=== PATIENT | male | born 1980 | race Caucasian/White ===

== ENCOUNTER 2016-11-21 19:20 | Emergency (ER) | payer SELFPAY ==
[~2016-11-21] VITALS: Ht 177.8 cm; Wt 72.6 kg
[~2016-11-21 19:20] MED LIST: HYDR-971 PO; SULF1TAB24 PO; TRAM-29 PO
[2016-11-21 19:39] VITALS: BP 137/93
[2016-11-21 20:37] LABS: OBC FLU VALID
[2016-11-21] MEDS ORDERED: PROAIR HFA8.5 GM INH (20:50)
[2016-11-21] MEDS ORDERED: PRED20TA PO (20:50)
--- NOTE | 2016-11-21 20:50 | PHYS DOC ---
Past Medical History Past Medical History: Arrhythmia, Bipolar, Other Additional Past Medical Histor: adhd Past Surgical History: Other Additional Past Surgical Histo: hand, Smokin Pack Per Day Alcohol Use: None Drug Use: Marijuana Adult General Chief Complaint Chief Complaint: SORE THROAT HPI HPI Patient is a 36 year old male who presents with sore throat and nasal congestion starting yesterday. Reports frontal headache, body aches, and mild cough. He denies fever, otalgia, dyspnea, vomiting, or diarrhea. He does not have a PCP. Review of Systems Review of Systems Constitutional: Denies fever or chills. [] Eyes: Denies change in visual acuity, redness, or eye pain. [] HENT: Denies ear pain. Reports sore throat and nasal congestion. Respiratory: Denies shortness of breath. Reports mild cough. Cardiovascular: Denies chest pain, palpitations or edema. [] GI: Denies abdominal pain, nausea, vomiting, bloody stools or diarrhea. [] : Denies dysuria, hematuria or urinary frequency. [] Musculoskeletal: Denies back pain or joint pain. Reports diffuse myalgias. Integument: Denies rash or skin lesions. [] Neurologic: Denies focal weakness or sensory changes. Reports frontal headache. Endocrine: Denies polyuria or polydipsia. [] Psych: Denies anxiety or depression. [] All systems reviewed and negative unless otherwise stated in the HPI. Allergies Allergies Allergies Coded Allergies Type Severity Reaction Last Updated Verified No Known Drug Allergies 01/08/16 No Physical Exam Physical Exam Constitutional: Well developed, well nourished, no acute distress, non-toxic appearance. [] HENT: Normocephalic, atraumatic, bilateral external ears normal, oropharynx moist, no oral exudates, nose normal. Bilateral TMs without erythema or bulging. There is mild posterior pharyngeal erythema with minimal tonsillar edema without exudates. There is no peritonsillar abscess or uvular deviation. Bilateral nasal turbinates are swollen and erythematous with purulent drainage. Eyes: PERRLA, EOMI, conjunctiva normal, no discharge. [] Neck: Normal range of motion, no tenderness, supple, no stridor. [] Cardiovascular: Heart rate regular rhythm, no murmur [] Lungs & Thorax: Bilateral breath sounds clear to auscultation without wheezes, rales, or rhonchi. Skin: Warm, dry, no erythema, no rash. [] Neurologic: Alert and oriented X 3, normal motor function, normal sensory function, no focal deficits noted. [] Psychologic: Affect normal, judgement normal, mood normal. [] Current Patient Data Vital Signs Vital Signs Date Time Temp Pulse Resp B/P Pulse Ox O2 Delivery O2 Flow Rate FiO2 11/21/16 19:39 98.2 92 16 99 Room Air 98.2 Lab Values Laboratory Tests Test 11/21/16 19:50 Influenza Type A Antigen Negative (NEGATIVE) Influenza Type B Antigen Negative (NEGATIVE) Rapid strep negative EKG EKG [] Radiology/Procedures Radiology/Procedures [] Course & Med Decision Making Course & Med Decision Making Pertinent Labs and Imaging studies reviewed. (See chart for details) [] Dragon Disclaimer Dragon Disclaimer This electronic medical record was generated, in whole or in part, using a voice recognition dictation system. Departure Departure Impression: Primary Impression: URI (upper respiratory infection) Disposition: HOME, SELF-CARE Condition: STABLE Referrals: NO PCP (PCP) Patient Instructions: Upper Respiratory Infection, Adult, [id number] Additional Instructions: Your flu and strep tests were negative. You appear to have a viral upper respiratory infection. Antibiotics do not help to treat viral infections. Please complete all the prescribed steroids, even if you are feeling better. Please use the prescribed inhaler to help with cough or shortness of breath. Do not use more often than directed. Please follow-up with a primary care provider within the next week. Return to emergency department if you have any new or concerning symptoms. Scripts Prednisone 20 Mg [id number] Mg PO DAILY 5 Days Prov:SHAYY TONY 11/21/16 Albuterol Sulfate (Proair Hfa Inhaler)8.5 Gm [id number] Puff INH Q4HRS PRN SHORTNESS OF BREATH #1 INHALER Prov:SHAYY TONY 11/21/16 Problem Qualifiers Primary Impression: URI (upper respiratory infection) URI type: unspecified viral URI Qualified Code: J06.9 - Acute upper respiratory infection, unspecified SHAYY TONY Nov 21, 2016 20:50
[2016-11-22 07:53] LABS: NEGATIVE OBC STREP NEG
[2016-11-22 07:54] LABS: POSITIVE OBC STREP POS
== END 2016-11-21 21:03 | disposition home or self-care (01) ==
LOC: ER 19:20
DX: J06.9 Acute upper respiratory infection, unspecified (principal); F17.200 Nicotine dependence, unspecified, uncomplicated; F12.10 Cannabis abuse, uncomplicated
CPT/HCPCS: 87070; 87804; 87880; 99284

== ENCOUNTER 2017-10-22 12:58 | Emergency (ER) | payer SELFPAY ==
[2017-10-22] MEDS: ONDANSETRON ODT 4 MG TAB.RAPDIS. PO ×2 (14:20)
[2017-10-22] MEDS: AZITHROMYCIN 250 MG TABLET. PO ×2 (14:21)
[2017-10-22] MEDS: cefTRIAXone IM 250 MG VIAL IM ×2 (14:22)
[2017-10-22] MEDS: metroNIDAZOLE 500 MG TABLET PO ×2 (14:22)
== END 2017-10-22 15:04 | disposition home or self-care (01) ==
LOC: ER 12:58
DX: Z20.2 Contact with and (suspected) exposure to infections with a predominantly sexual mode of transmission (principal); F31.9 Bipolar disorder, unspecified; F12.10 Cannabis abuse, uncomplicated; F90.9 Attention-deficit hyperactivity disorder, unspecified type
CPT/HCPCS: 87491; 87591; 96372; 99284; J0696; Q0144; Q0162